=== PATIENT | female | born 1985 | race Caucasian/White ===

== ENCOUNTER 2020-10-05 17:03 | Emergency (ER) | payer MEDICAID ==
[~2020-10-05] VITALS: Ht 152.4 cm; Wt 74.0 kg
[2020-10-05] MEDS ORDERED: IPRATRPIUM/ALBUTEROL 0.5/2.5MG 3 ML NEBU. ONE (17:47)
[2020-10-05] MEDS ORDERED: IPRATRPIUM/ALBUTEROL 0.5/2.5MG 3 ML NEBU. NEB ONE (18:00)
--- NOTE | 2020-10-05 18:12 | RAD ---
XR CHEST 2V History: Reason: congestion, fever / Spl. Instructions: / History: Comparison: None. Findings: No consolidation or pleural effusion. Normal heart size. No pneumothorax. Impression: 1. No acute cardiopulmonary process. Electronically signed by: Ryan Siegel DO (10/05/2020 6:09 PM) [facility]
[2020-10-05 18:28] LABS: CALCIUM 8.3 mg/dL (8.5-10.1); CREATININE 0.8 mg/dL (0.6-1.0); GFR 81.6; POTASSIUM 4.4 mmol/L (3.5-5.1)
[2020-10-05] MEDS ORDERED: predniSONE 20 MG TABLET PO ONE (18:45)
--- NOTE | 2020-10-05 18:51 | PHYS DOC ---
Past History Past Medical History: Asthma (BRAN GERARD APRN) Alcohol Use: None (BRAN GERARD APRN) Adult General Chief Complaint Chief Complaint: CONGESTION HPI HPI Patient is a 35-year-old female who presents to the emergency department chief complaint of chest congestion with productive cough since last Saturday. Patient states that she has had off-and-on fevers reporting a fever of 101.0 yesterday but has not had a fever since. Patient reports going to an urgent care this morning and receiving a Covid test that was negative. Patient states she quit smoking 1 month ago after a pack a day smoker for 5 years. Patient states she does have a history of asthma and wets she uses an albuterol Ventolin MDI and nebulizer machine, states she also takes Zyrtec for seasonal allergies. Denies allergies to medications states she does not have a doctor in the area as she just moved here from [place]. Patient denies headaches, chest pain, nasal congestion, nausea, vomiting, or diarrhea. Patient denies vaginal discharge, denies urinary tract infection type signs and symptoms, denies STI concerns. P atient denies any other physical complaints or physical concerns. Patient reports she has not had the Covid 19 vaccination series. (BRAN GERARD APRN) Review of Systems Review of Systems 14 body systems of review of systems have been reviewed. See HPI for pertinent positives and negative responses, otherwise all other systems are negative, nonpertinent or noncontributory. (BRAN GERARD APRN) Current Medications Current Medications Current Medications Medications (Trade) Dose Ordered Sig/Sonia Start Time Stop Time Status Last Admin Dose Admin Albuterol/ Ipratropium (Duoneb) 3 ml 1X ONCE 10/05/20 18:00 10/05/20 18:01 DC 10/05/20 18:00 3 ML Prednisone (Prednisone) 60 mg 1X ONCE 10/05/20 18:45 10/05/20 18:46 (BRAN GERARD APRN) Allergies Allergies Allergies Coded Allergies Type Severity Reaction Last Updated Verified No Known Drug Allergies 10/05/20 No (BRAN GERARD APRN) Physical Exam Physical Exam Constitutional: Well developed, well nourished, no acute distress, non-toxic appearance. 35-year-old female in no apparent distress. HENT: Normocephalic, atraumatic, bilateral external ears normal, oropharynx moist, no oral exudates, nose normal. Eyes: Conjunctiva normal, no discharge. Neck: Normal range of motion. Cardiovascular:Heart rate regular rhythm, no murmur heart sounds S1-S2 to auscultation. Lungs & Thorax: No audible adventitious lung sounds appreciated, patient is in no respiratory distress, however patient has I/E wheezes all lung monsalve per a uscultation. Abdomen: Bowel sounds normal, soft, no tenderness, no masses, no pulsatile masses. Skin: Warm, dry, no erythema, no rash. Back: No tenderness, no CVA tenderness. Extremities: No tenderness, no cyanosis, no clubbing, ROM intact, no edema. Neurologic: Alert and oriented X 3, normal motor function, normal sensory function, no focal deficits noted. Psychologic: Affect normal, judgement normal, mood normal. (BRAN GERARD APRN) Current Patient Data Vital Signs Vital Signs Date Time Temp Pulse Resp B/P (MAP) Pulse Ox O2 Delivery O2 Flow Rate FiO2 10/05/20 17:15 98.7 80 15 111/40 (63) 98 Room Air Lab Results Laboratory Tests Test 10/05/20 17:42 Sodium Level 144 mmol/L Potassium Level 4.4 mmol/L Chloride Level 109 mmol/L Carbon Dioxide Level 27 mmol/L Anion Gap 8 Blood Urea Nitrogen 11 mg/dL Creatinine 0.8 mg/dL Estimated GFR (Cockcroft-Gault) 81.6 Glucose Level 76 mg/dL Calcium Level 8.3 mg/dL Current Medications Medications (Trade) Dose Ordered Sig/Sonia Route PRN Reason Start Time Stop Time Status Last Admin Dose Admin Albuterol/ Ipratropium (Duoneb) 3 ml STK-MED ONCE .ROUTE 10/05/20 17:47 10/05/20 17:47 DC Albuterol/ Ipratropium (Duoneb) 3 ml 1X ONCE NEB 10/05/20 18:00 10/05/20 18:01 DC 10/05/20 18:00 3 ML Prednisone (Prednisone) 60 mg 1X ONCE PO 10/05/20 18:45 10/05/20 18:46 Laboratory Tests Test 10/05/20 17:42 Sodium Level 144 mmol/L (136-145) Potassium Level 4.4 mmol/L (3.5-5.1) Chloride Level 109 mmol/L (98-107) H Carbon Dioxide Level 27 mmol/L (21-32) Anion Gap 8 (6-14) Blood Urea Nitrogen 11 mg/dL (7-20) Creatinine 0.8 mg/dL (0.6-1.0) Estimated GFR (Cockcroft-Gault) 81.6 Glucose Level 76 mg/dL (70-99) Calcium Level 8.3 mg/dL (8.5-10.1) L (BRAN GERARD APRN) EKG EKG [] (BRAN GERARD APRN) Radiology/Procedures Radiology/Procedures PATIENT: DANTE DOBBINS ACCOUNT: [id number] : 1985 LOCATION: ER AGE: 35 SEX: F EXAM STATUS: REG ER ORD. PHYSICIAN: BRAN GERARD APRN REASON: congestion, fever PROCEDURE: CHEST PA & LATERAL XR CHEST 2V History: Reason: congestion, fever / Spl. Instructions: / History: Comparison: None. Findings: No consolidation or pleural effusion. Normal heart size. No pneumothorax. Impression: 1. No acute cardiopulmonary process. Electronically signed by: Ryan Siegel DO (10/05/2020 6:09 PM) [facility] DICTATED AND SIGNED BY: RYAN SIEGEL DO DATE: 10/05/201808 CC: BRAN GERARD APRN; PCP,UNKNOWN ~MTH0 0 (BRAN GERARD APRN) Heart Score C/O Chest Pain: No Risk Factors: Risk Factors: DM, Current or recent (<one month) smoker, HTN, HLP, family hist ory of CAD, obesity. Risk Scores: Risk Factors: DM, Current or recent (<one month) smoker, HTN, HLP, family history of CAD, obesity. (BRAN GERARD APRN) Course & Med Decision Making Course & Med Decision Making Pertinent Labs and Imaging studies reviewed. (See chart for details) 35-year-old female, vital signs reviewed, presents emergency department concerning chest congestion since last Saturday. Physical examination concerning for acute asthma exacerbation, will order chest x-ray related to patient's chief complaint of fever and congestion, DuoNeb treatment, 60 mg prednisone p.o. Chest x-ray read by house radiologist interpretation negative for acute process. Upon reexamination of the patient, the patient is in no respiratory distress, there were no adventitious lung sounds appreciated per auscultation. Patient states that she feels much better and wishes to go home, is asking for a prescription for prednisone and a medication refill of her Ventolin MDI. Discussed with patient follow-up with primary care, will give the [facility] as recommendation, patient gave verbal understanding of discharge home instructions, follow-up with PCP, return to ER precautions and concerns, patient was discharged home without incident. (BRAN GERARD APRN) Course & Med Decision Making Did not see or evaluate patient. Agree with AUDIO VISUAL ARTS DIRECTOR's work-up and disposition per note. (VIJAY DENNIS MD) Dragon Disclaimer Dragon Disclaimer This electronic medical record was generated, in whole or in part, using a voice recognition dictation system. (BRAN GERARD APRN) Departure Departure: Impression: Primary Impression: Asthma Disposition: 01 HOME / SELF CARE / HOMELESS Condition: GOOD Referrals: PCP,UNKNOWN (PCP) Patient Instructions: Asthma, Adult Additional Instructions: You are seen today in the emergency department for congestion of the chest, your chest x-ray did not show any concerning signs of pneumonia or other respiratory process that would warrant a admission to the hospital or immediate assessment by pulmonology specialist. Your lung assessment did reveal inspiratory and expiratory wheezing, you were treated with a DuoNeb breathing treatment and given 60 mg prednisone, you indicated that you were feeling much better after the treatment, your wheezing had subsided, I am prescribing you a prescription for your Ventolin MDI and 20 mg prednisone to take once a day for 5 days. You indicated that you recently moved here from [place] and did not have a primary care health provider, you may consider using the [facility] located at [facility] [address] [place] [address], telephone number area code [phone]. Please return to the emergency department for worsening symptoms or other concerns. EMERGENCY DEPARTMENT GENERAL DISCHARGE INSTRUCTIONS Thank you for coming to [facility] (ED) today and trusting us with you care. We trust that you had a positivie experience in our Emergency Department. If you wish to speak to the department management, you may call the director at [phone]. YOUR FOLLOW UP INSTRUCTIONS ARE FOLLOWS: 1. Do you have a private Doctor? If you do not have a private doctor, please ask for a resource list of physicians or clinics that may be able to assist you with follow up care. 2. The Emergency Physician has interpreted your x-rays. The X-Ray specialist will also review them. If there is a change in the findings, you will be notified in 48 hours when at all possible. 3. A lab test or culture has been done, your results will be reviewed and you will be notified if you need a change in treatment. ADDITIONAL INSTRUCTIONS AND INFORMATION: 1. Your care today has been supervised by a physician who is specially trained in emergency care. Many problems require more than one evaluation for a complete diagnosis and treatment. We recommend that you schedule your follow up appointment as recommended to ensure complete treatment of you illness or injury. If you are unable to obtain follow up care and continue to have a problem, or if your condition worsens, we recommend that you return to the ED. 2. We are not able to safely determine your condition over the phone nor are we able to give sound medical advice over the phone. For these safety reasons, if you call for medical advice we will ask you to come to the ED for further evaluation. 3. If you have any questions regarding these discharge instructions please call the ED at [phone]. SAFETY INFORMATION: In the interest of safety, wellness, and injury prevention; we encourage you to wear your sealbelt, if you smoke; quite smoking, and we encourage family to use a protective helmet for bicycling and other sporting events that present an increased risk for head injury. IF YOUR SYMPTOMS WORSEN OR NEW SYMPTOMS DEVELOP, OR YOU HAVE CONCERNS ABOUT YOUR CONDITION; OR IF YOUR CONDITION WORSENS WHILE YOU ARE WAITING FOR YOUR FOLLOW UP APPOINTMENT; EITHER CONTACT YOUR PRIMARY CARE DOCTOR, THE PHYSICIAN WHOSE NAME AND NUMBER YOU WERE GIVEN, OR RETURN TO THE ED IMMEDIATELY. Scripts Albuterol Sulfate (VENTOLIN HFA INHALER) 18 Gm Hfa.aer.ad 1 PUFF IH PRN Q4HRS PRN for FOR ASTHMA, #1 EACH 0 Refills Prov: BRAN GERARD FLOOR COVERER APPRENTICE 10/05/20 Prednisone (PREDNISONE) 20 Mg Tablet 1 TAB PO DAILY for ASTHMA for 5 Days, #5 TAB Prov: BRAN GERARD APRN 10/05/20 Problem Qualifiers Primary Impression: Asthma Asthma severity: mild Asthma persistence: intermittent Asthma complication type: uncomplicated Qualified Codes: J45.20 - Mild intermittent asthma, uncomplicated BRAN GERARD APRN Oct 05, 2020 18:51 VIJAY DENNIS MD Oct 05, 2020 20:11
[2020-10-05 18:58] LABS: BASO # 0.1 x10^3/uL (0.0-0.2); BASO % 1 % (0-3); EOS # 0.9 x10^3/uL (0.0-0.7); EOS % 13 % (0-3); HEMATOCRIT 41.3 % (36.0-47.0); LYMPH # 1.7 x10^3/uL (1.0-4.8); LYMPH % 23 % (24-48); MEAN CORPUSCULAR HEMOGLOBIN 30 pg (25-35); MEAN CORPUSCULAR HGB CONC 34 g/dL (31-37); MEAN CORPUSCULAR VOLUME 89 fL (79-100); MONO # 0.5 x10^3/uL (0.0-1.1); MONO % 7 % (0-9); NEUT # 4.2 x10^3uL (1.8-7.7); NEUT % 57 % (31-73); PLATELET COUNT 254 x10^3/uL (140-400); RED BLOOD COUNT 4.65 x10^6/uL (3.50-5.40); RED CELL DISTRIBUTION WIDTH 13.4 % (11.5-14.5); WHITE BLOOD COUNT 7.3 x10^3/uL (4.0-11.0)
[2020-10-05] MEDS ORDERED: PRED20TA PO (19:11)
[2020-10-05] MEDS ORDERED: ALBU2.5V8 IH (19:11)
[2020-10-05 19:13] VITALS: BP 112/58
== END 2020-10-05 19:16 | disposition home or self-care (01) ==
LOC: ER 17:03
DX: J45.20 Mild intermittent asthma, uncomplicated (principal)
CPT/HCPCS: 36415; 71046; 80048; 85025; 94640; 99284; J7512